=== PATIENT | female | born 1990 | race Caucasian/White ===

== ENCOUNTER 2019-04-13 22:16 | Emergency (ER) | payer BC, MEDICAID ==
[2019-04-13 22:32] VITALS: BP 127/69
--- NOTE | 2019-04-13 23:26 | ER Document Report ---
ED Medical Screen (RME) - General Chief Complaint: Headache Stated Complaint: POSSIBLE HEADACHE Time Seen by Provider: 04/13/19 23:23 Notes: Patient is a 29-year-old female who presents to the emergency department with a chief complaint of a headache. Patient states she has had a headache for about 4 days. Patient states the headache is located behind her left eye and feels like a pressure. Patient states she has had nausea but no vomiting. Patient states she has had intermittent blurred vision to the left eye. Patient states she is extremely sensitive to light as this makes her headache worse. Patient states that the pain started 4 days ago, has been somewhat intermittent and then got worse this afternoon. Patient has attempted to take Tylenol and ibuprofen at home without relief. Patient states she does not have a diagnosed history of migraines but does have a history of bad headaches TRAVEL OUTSIDE OF THE [place] IN LAST 30 DAYS: No - Related Data Allergies/Adverse Reactions: No Known Drug Allergies Allergy (Verified 04/13/19 22:19) Physical Exam - Vital signs Vitals: Temp Pulse Resp BP Pulse Ox 98.3 F 76 20 127/69 H 100 04/13/19 22:30 04/13/19 22:30 04/13/19 22:30 04/13/19 22:30 04/13/19 22:30 Interpretation: Normal - Neurological Neuro grossly intact: Yes Cognition: Normal Orientation: AAOx4 Renetta Coma Scale Eye Opening: Spontaneous [place] Coma Scale Verbal: Oriented [place] Coma Scale Motor: Obeys Commands Renetta Coma Scale Total: 15 Speech: Normal Cranial nerves: Normal Cerebellar coordination: Normal Course - Re-evaluation Re-evalutation: 04/14/19 02:01 I have greeted and performed a rapid initial assessment of this patient. A comprehensive ED assessment and evaluation of the patient, analysis of test results and completion of the medical decision making process will be conducted by additional ED providers. - Vital Signs Vital signs: Temp Pulse Resp BP Pulse Ox 98.3 F 76 20 127/69 H 100 04/13/19 22:30 04/13/19 22:30 04/13/19 22:30 04/13/19 22:30 04/13/19 22:30
[2019-04-13] MEDS ORDERED: METOCLOPRAMIDE HCL INJ/PF 10 MG/2 ML SDV IV ONE (23:28)
[2019-04-13] MEDS ORDERED: NORMAL SALINE 1000 ML 1,000 ML IV ONE (23:28)
[2019-04-13] MEDS ORDERED: DIPHENHYDRAMINE HCL 50 MG/ML VIAL IV ONE (23:29)
[2019-04-13] MEDS ORDERED: KETOROLAC TROMETHAMINE INJ/PF 30 MG/1 ML SDV IV ONE (23:29)
[2019-04-14] MEDS ORDERED: MAGNESIUM SULFATE/D5W 1 GM/100 ML RTUPB IV ONE (01:39)
[2019-04-14] MEDS ORDERED: DEXAMETHASONE SOD PHOS INJ 10 MG/1 ML VIAL IV ONE (01:39)
--- NOTE | 2019-04-14 01:40 | ER Document Report ---
ED General - General Chief Complaint: Headache Stated Complaint: POSSIBLE HEADACHE Time Seen by Provider: 04/13/19 23:23 Primary Care Provider: CASSIE DENT MD [COMMUNITY BASED STAFF] - Follow up in 3-5 days Notes: Patient is a 29-year-old female with history of migraines that presents to the emergency department for chief complaint of headache. Patient states she had a headache for about 4 days, it is mainly behind her left eye she describes as an ache with associated photophobia, with occasional sharp pain, since receiving medications ordered in triage, her headache has improved, to a mild dull ache. She denies sudden onset of the headache, it is been a gradual onset and build up over the past several days. She denies any numbness, tingling or weakness, denies any vomiting, but has had some associated nausea. Denies any blurred vision or changes in her vision. Currently rates the headache as a 4 out of 10. Past Medical History: Migraine headaches Past Surgical History: , hernia repair Social History: Former smoker, denies alcohol or drug use. Family History: Reviewed and noncontributory for presenting illness Allergies: Reviewed, see documented allergy list. REVIEW OF SYSTEMS: Other than noted above, the 12 point review of systems was reviewed with the patient and were negative, all pertinent findings are included in the HPI. PHYSICAL EXAMINATION: Vital signs reviewed, nursing noted reviewed. GENERAL: Patient appears uncomfortable, but in no acute distress. HEAD: Atraumatic, normocephalic. EYES: Eyes appear normal, extraocular movements intact, sclera anicteric, conjunctiva are normal. PERRLA ENT: nares patent, oropharynx clear without exudates. Moist mucous membranes. No sinus tenderness NECK: Normal range of motion, supple without lymphadenopathy LUNGS: Breath sounds clear to auscultation bilaterally and equal. No wheezes rales or rhonchi. HEART: Regular rate and rhythm without murmurs ABDOMEN: Soft, nontender, normoactive bowel sounds. No rebound, guarding, or rigidity. No masses appreciated. EXTREMITIES: Nontender, good range of motion, no pitting or edema. NEUROLOGICAL: No focal neurological deficits. Moves all extremities spontaneously Motor and sensory grossly intact on exam. PSYCH: Normal mood, normal affect. SKIN: Warm, Dry, normal turgor, no rashes or lesions noted on exposed skin TRAVEL OUTSIDE OF THE [place] IN LAST 30 DAYS: No - Related Data Allergies/Adverse Reactions: No Known Drug Allergies Allergy (Verified 04/13/19 22:19) Past Medical History - Social History Smoking Status: Never Smoker Family History: Reviewed & Not Pertinent Patient has suicidal ideation: No Patient has homicidal ideation: No Renal/ Medical History: Denies: Hx Peritoneal Dialysis Physical Exam - Vital signs Vitals: Temp Pulse Resp BP Pulse Ox 98.3 F 76 20 127/69 H 100 04/13/19 22:30 04/13/19 22:30 04/13/19 22:30 04/13/19 22:30 04/13/19 22:30 Course - Re-evaluation Re-evalutation: Patient seen and examined vital signs reviewed. Patient was evaluated and treated as appropriate for the patient's presenting symptoms and complaint, with consideration of any critical or life threatening conditions that may be associated with their obtained history and exam as noted above. Patient was treated with Toradol, Benadryl, Reglan and fluids ordered in triage, added dexamethasone, and IV magnesium The patient was re-evaluated and was stable and much improved Evaluation was most consistent with headache, most likely migraine type, will prescribe the patient appears at the take if needed for headache, and have her follow-up with primary care. Plan of care was discussed with the patient at this point, after careful consideration I feel that that patient can be discharged from the emergency department, the patient was educated treatments and reasons to return to the emergency department based on their presumed diagnosis as noted above, they were advised to followup with a primary care physician in 2-3 days. Patient was agreeable to plan of care. *Note is created using voice recognition software and may contain spelling, syntax or grammatical errors. - Vital Signs Vital signs: Temp Pulse Resp BP Pulse Ox 98.3 F 70 14 127/69 H 100 04/13/19 22:30 04/14/19 03:29 04/14/19 03:29 04/13/19 22:30 04/13/19 22:30 Discharge - Discharge Clinical Impression: Headache Qualifiers: Headache type: unspecified Headache chronicity pattern: unspecified pattern Intractability: not intractable Qualified Code(s): R51 - Headache Condition: Stable Disposition: HOME, SELF-CARE Instructions: Headache ([facility]) Prescriptions: Butalb/Acetaminophen/Caffeine [Fioricet 50-300-40 mg Capsule] 1 cap PO Q6H PRN #15 cap PRN Reason: headache Referrals: CASSIE DENT MD [COMMUNITY BASED STAFF] - Follow up in 3-5 days
== END 2019-04-14 03:27 | disposition home or self-care (01) ==
LOC: ER 22:16
DX: R51 Headache (principal)
CPT/HCPCS: 99283; 96361; 96375; 96365; J1200; J1885; J2765; J3475; J7030; J1100